=== PATIENT | male | born 1940 | race Two or more races ===

== ENCOUNTER 2018-11-24 22:39 | Inpatient (IN) | payer MEDICARE, MEDICAID ==
[~2018-11-24] VITALS: Ht 175.3 cm; Wt 70.4 kg
[2018-11-25 00:40] LABS: Urine Bacteria FEW /hpf (None Seen); Urine Blood TRACE /uL (Negative); Urine Specific Gravity 1.012 (1.001-1.035); Urine WBC 2 /hpf (0 - 3)
[2018-11-25 03:10] LABS: Basophils # (auto) 0 uL; Basophils % (auto) 0.3 % (0.0-2.0); Eosinophils # (auto) 0 uL; Eosinophils % (auto) 0.3 % (0.0-7.0); Hemoglobin 13.5 g/dL (13.5-17.5); Lymphocytes # (auto) 1.7 uL; Lymphocytes % (auto) 11.2 % (10.0-50.0); Mean Corpuscular Hemoglobin 30.7 pg (28.0-32.0); Mean Corpuscular Hgb Conc. 33.8 g/dL (32.0-36.0); Mean Corpuscular Volume 90.8 fL (80.0-100.0); Monocytes # (auto) 0.7 uL; Monocytes % (auto) 4.7 % (0.0-12.0); Neutrophils % (auto) 83.5 % (37.0-80.0); Platelet Count (auto) 268 10^3/uL (140-450); White Blood Cell 15.5 10^3/uL (4.4-10.8)
[2018-11-25 03:26] LABS: BUN/Creatinine Ratio 21.2; Calcium 8.9 mg/dL (8.5-10.1); Potassium 3.6 mmol/L (3.5-5.1)
[2018-11-25 03:29] LABS: Bilirubin, Total 1.1 mg/dL (0.2-1.0); Total Protein 6.6 g/dL (6.4-8.2)
[2018-11-25 03:35] LABS: INR 0.93 (0.9-1.15)
[2018-11-25] MEDS ORDERED: ONDANSETRON HCL 4 MG/2 ML VIAL IV PRN (07:15)
[2018-11-25] MEDS ORDERED: diphenhdrAMINE HCL 50 MG/1 ML VL IV PRN (07:15)
[2018-11-25] MEDS ORDERED: DEXTROSE (50%) 50ML SYRG IV PRN (07:15)
[2018-11-25 08:14] LABS: Urine Bacteria NONE SEEN /hpf (None Seen); Urine Blood TRACE /uL (Negative); Urine Specific Gravity 1.011 (1.001-1.035); Urine WBC 1 /hpf (0 - 3)
[2018-11-25] MEDS: cefTRIAXone 1GM/50ML D5W 50 ML IV SCH (08:40)
[2018-11-25] MEDS: metroNIDAZOLE 500MG/100ML 100 ML IV SCH ×2 (09:43→15:43)
[2018-11-25] MEDS: LISINOPRIL 10 MG TAB PO SCH (10:00)
[2018-11-25] MEDS: ACCU-CHEK COMFORT CURVE STRIP VI SCH ×3 (11:48→23:03)
[2018-11-25] MEDS: InsuLIN REG 1unit/0.01ml Soln (100units/ml) SC SCH ×3 (11:58→23:11)
[2018-11-25] MEDS: GENTAMICIN OPTH sol 0.3% 5ml EACHEYE SCH ×4 (12:47→22:00)
[2018-11-25] MEDS: TAMSULOSIN HYDROCHLORIDE 0.4 MG CAP PO SCH (20:03)
[2018-11-25] MEDS: SOD CHL 0.45% WITH 20MEQ KCL 1,000 ML IV SCH (20:12)
[2018-11-26] MEDS: GENTAMICIN OPTH sol 0.3% 5ml EACHEYE SCH ×6 (02:00→21:31)
[2018-11-26] MEDS: CLINDAMYCIN 300MG IV 50 ML IV SCH ×4 (05:17→21:31)
[2018-11-26] MEDS: metroNIDAZOLE 500MG/100ML 100 ML IV SCH ×4 (06:05→22:52)
[2018-11-26] MEDS: ACCU-CHEK COMFORT CURVE STRIP VI SCH ×4 (06:51→21:31)
[2018-11-26] MEDS: InsuLIN REG 1unit/0.01ml Soln (100units/ml) SC SCH ×4 (06:58→21:31)
[2018-11-26] MEDS: SOD CHL 0.45% WITH 20MEQ KCL 1,000 ML IV SCH ×2 (07:24→17:56)
--- NOTE | 2018-11-26 08:30 | NUR ---
Telemetry admit from ER KATERYNASRIDHAR admitted to Telemetry unit, no SBAR received. Patient introduced primary RN, unit, room, bed, and unit policies regarding patient care and visiting hours. Patient now on continuous telemetry monitoring, tele box # 43 and telemetry reading on arrival to unit is SR 87. Patient weighed by bedscale and encouraged to call if he need something. Patient is alert and oriented to self. Does not know where he is and unable to say why he came to the hospital. No family member with patient at this time to assist with admission. Sitter at bedside.
[2018-11-26 09:00] VITALS: BP 164/71
[2018-11-26] MEDS: LISINOPRIL 10 MG TAB PO SCH (09:12)
[2018-11-26] MEDS: cefTRIAXone 1GM/50ML D5W 50 ML IV SCH (09:12)
--- NOTE | 2018-11-26 09:30 | NUR ---
Sister at bedside.
[2018-11-26] MEDS ORDERED: METF-370 PO (09:55)
[2018-11-26] MEDS ORDERED: AMLO10TA12 PO (09:55)
[2018-11-26] MEDS ORDERED: DONE10TA40 PO (09:55)
[2018-11-26 10:20] VITALS: BP 164/71
--- NOTE | 2018-11-26 11:50 | NUR ---
MRCP Technicians at bedside to take patient for procedure. However, the patient is very drowsy and is not responding to commands at this time. Patient is not laying flat.
[2018-11-26] MEDS ORDERED: LORazepam 2MG/ML-1ML VIAL IV ONE (14:45)
--- NOTE | 2018-11-26 15:15 | NUR ---
MRCP Procedure was explained to patient in Danish and he consented to have procedure done. Patient left unit with technicians for MRCP.
--- NOTE | 2018-11-26 15:46 | NUR ---
MRCP Patient returned to unit after having MRCP done.
[2018-11-26] MEDS: TAMSULOSIN HYDROCHLORIDE 0.4 MG CAP PO SCH (17:54)
--- NOTE | 2018-11-26 19:10 | NUR ---
Opening Shift Note Bed side report with day BIRGIT Escalante, Assumed care of patient, awake, sitter at bedside for safety. No S/S of distress/SOB or pain. Instructed on POC and to call for assist PRN, will continue to monitor for changes Q1hr and PRN. Informed patient the need to alternate positions, the need to ask for help. Bed locked and in lowest position, call light within reach.
--- NOTE | 2018-11-26 21:55 | NUR ---
FAMILY PHONE CALL Trace wanted update on pt, password was provided, gave latest updates, will continue to monitor pt.
[2018-11-26 22:00] VITALS: BP 159/71
[2018-11-27] MEDS: SOD CHL 0.45% WITH 20MEQ KCL 1,000 ML IV SCH ×3 (00:15→20:15)
--- NOTE | 2018-11-27 00:57 | NUR ---
PT ROUNDS PT resting no s/sx;s of distress or sob, sitter at bedside for safety.
[2018-11-27] MEDS: GENTAMICIN OPTH sol 0.3% 5ml EACHEYE SCH ×6 (02:00→21:23)
--- NOTE | 2018-11-27 02:22 | NUR ---
PT ROUNDS Pt refusing eye drops does not want to be disturb, explain purpose of med. still refused med
--- NOTE | 2018-11-27 02:48 | NUR ---
PT REFUSING TELE MONITOR Reinforced needed to explain pt purpose of tele monitor, informed him why it was indicated, pt was hesitant but accepted will continue to monitor pt.
--- NOTE | 2018-11-27 03:38 | NUR ---
PT ROUNDS PT removed tele stickers reeducated pt purpose of them, pt hesitant to wear them, pt cleaned up. Instructed pot how to use urinal , if pt unable to use notified pt that we can help him so he wont get wet everytime, Pt hesitant and states the urinal doesn't work. Educated pt how to use and how to avoid spills. Reinforcement needed. sitter at bedside for safety will continue to monitor pt.
[2018-11-27 04:00] VITALS: BP 146/76
[2018-11-27] MEDS: CLINDAMYCIN 300MG IV 50 ML IV SCH ×3 (05:57→21:23)
[2018-11-27] MEDS: ACCU-CHEK COMFORT CURVE STRIP VI SCH ×4 (05:57→21:23)
[2018-11-27] MEDS: InsuLIN REG 1unit/0.01ml Soln (100units/ml) SC SCH ×4 (06:10→21:23)
[2018-11-27 06:11] LABS: Basophils # (auto) 0.1 uL; Basophils % (auto) 0.4 % (0.0-2.0); Eosinophils # (auto) 0 uL; Eosinophils % (auto) 0.2 % (0.0-7.0); Hematocrit 36.6 % (41.0-53.0); Hemoglobin 12.6 g/dL (13.5-17.5); Lymphocytes # (auto) 1.7 uL; Lymphocytes % (auto) 11.7 % (10.0-50.0); Mean Corpuscular Hemoglobin 31.6 pg (28.0-32.0); Mean Corpuscular Hgb Conc. 34.4 g/dL (32.0-36.0); Mean Corpuscular Volume 91.9 fL (80.0-100.0); Monocytes # (auto) 1.1 uL; Monocytes % (auto) 7.8 % (0.0-12.0); Neutrophils # (auto) 11.8 uL; Neutrophils % (auto) 79.9 % (37.0-80.0); Platelet Count (auto) 237 10^3/uL (140-450); Red Blood Cells 3.98 10^6/uL (4.5-5.90); White Blood Cell 14.7 10^3/uL (4.4-10.8)
[2018-11-27 06:40] LABS: BUN/Creatinine Ratio 15.3; Calcium 8.1 mg/dL (8.5-10.1); Potassium 3.8 mmol/L (3.5-5.1)
--- NOTE | 2018-11-27 07:29 | NUR ---
CLOSING NOTE Report endorsed to day RN pt resting no s/sx's of distress or sob
--- NOTE | 2018-11-27 07:40 | NUR ---
Opening Shift Note Assumed care of patient, awake and alert to self and place. No S/S of distress/SOB or pain. Instructed on POC and to call for assist PRN, will continue to monitor for changes Q1hr and PRN.
[2018-11-27] MEDS: metroNIDAZOLE 500MG/100ML 100 ML IV SCH ×3 (08:26→23:37)
[2018-11-27 08:49] VITALS: BP 148/73
[2018-11-27] MEDS: cefTRIAXone 1GM/50ML D5W 50 ML IV SCH (09:05)
[2018-11-27] MEDS: ACETAMINOPHEN 500 MG TAB PO PRN (09:05)
[2018-11-27] MEDS: LISINOPRIL 10 MG TAB PO SCH (09:06)
--- NOTE | 2018-11-27 12:20 | NUR ---
ERCP Consents Consent form for procedure signed by nephew. Sister and nephew was at bedside while MD explained the procedure.
[2018-11-27 13:00] VITALS: BP 141/70
--- NOTE | 2018-11-27 14:23 | NUR ---
NUTRITION ASSESSMENT NOTES Please refer to link notes of nutrition screen form filed under the intervention section of the plan of care for further details. Est. Needs: 1700 kcal to 2100 kcal (20-25 kcal/kgBW), 68 gms to 84 gms pro (0.8-1.0 gms/kgBW). Will continue to monitor pertinent labs and reassess nutrient need prn Thank you. Addendum: 11/27/18 at [address] Amended: Links added.
[2018-11-27] MEDS ORDERED: fentaNYL CITRATE 5 ML ONE (14:59)
[2018-11-27] MEDS ORDERED: ONDANSETRON HCL 4 MG/2 ML VIAL ONE (15:00)
[2018-11-27] MEDS ORDERED: MIDAZOLAM HCL 1MG/1ML-2 ML VIAL ONE (15:00)
[2018-11-27] MEDS ORDERED: IOHEXOL 300 MG/ML 100ML BOTTLE IJ ONE (15:37)
--- NOTE | 2018-11-27 15:45 | NUR ---
ERCP Patient taken down to PACU to have ERCP done.
--- NOTE | 2018-11-27 18:55 | NUR ---
Patient returned to unit awake but drowsy. Family members at bedside.
--- NOTE | 2018-11-27 19:10 | NUR ---
Opening Shift Note Assumed care of patient, awake, nephew at bedside. No S/S of distress/SOB or pain. Vitals obtained, Day RN at bedside. Instructed on POC and to call for assist PRN, will continue to monitor for changes Q1hr and PRN. Placed pt on SCD's. Informed pt purpose of SCD's. IV intact and patent. Bed locked and in lowest position, call light within reach.
[2018-11-27] MEDS: TAMSULOSIN HYDROCHLORIDE 0.4 MG CAP PO SCH (19:16)
[2018-11-27 22:00] VITALS: BP 144/70
[2018-11-28] MEDS: GENTAMICIN OPTH sol 0.3% 5ml EACHEYE SCH ×6 (01:30→22:06)
[2018-11-28 05:00] VITALS: BP 157/80
[2018-11-28 05:45] LABS: Basophils # (auto) 0.1 uL; Basophils % (auto) 0.5 % (0.0-2.0); Eosinophils # (auto) 0 uL; Eosinophils % (auto) 0.2 % (0.0-7.0); Hematocrit 36.8 % (41.0-53.0); Hemoglobin 12.3 g/dL (13.5-17.5); Lymphocytes # (auto) 0.8 uL; Lymphocytes % (auto) 5.7 % (10.0-50.0); Mean Corpuscular Hemoglobin 30.8 pg (28.0-32.0); Mean Corpuscular Hgb Conc. 33.5 g/dL (32.0-36.0); Mean Corpuscular Volume 92.2 fL (80.0-100.0); Monocytes # (auto) 0.8 uL; Monocytes % (auto) 5.8 % (0.0-12.0); Neutrophils # (auto) 11.8 uL; Neutrophils % (auto) 87.8 % (37.0-80.0); Platelet Count (auto) 265 10^3/uL (140-450); Red Blood Cells 3.99 10^6/uL (4.5-5.90); Red Cell Distribution Width 13.3 % (11.8-14.3); White Blood Cell 13.4 10^3/uL (4.4-10.8)
[2018-11-28] MEDS: ACCU-CHEK COMFORT CURVE STRIP VI SCH ×4 (06:06→22:06)
[2018-11-28] MEDS: SOD CHL 0.45% WITH 20MEQ KCL 1,000 ML IV SCH ×2 (06:06→17:20)
[2018-11-28 06:17] LABS: Potassium 3.8 mmol/L (3.5-5.1)
[2018-11-28] MEDS: CLINDAMYCIN 300MG IV 50 ML IV SCH ×3 (06:18→21:59)
[2018-11-28] MEDS: InsuLIN REG 1unit/0.01ml Soln (100units/ml) SC SCH ×4 (06:19→22:00)
[2018-11-28 06:23] LABS: BUN/Creatinine Ratio 14.8
--- NOTE | 2018-11-28 07:16 | NUR ---
UNSUCCESSFUL ATTEMPTS FOR IV Unsuccessful attempts for IV insertion, unsuccessful, pt requested to take a break will endorse to day RN
--- NOTE | 2018-11-28 07:17 | NUR ---
CLOSING NOTE Report endorsed to day RN, pt awake, inform pt unable to get an IV. pt did not want to be poked again. no s/sx's of distress or sob noted
[2018-11-28 08:00] VITALS: BP 149/69
[2018-11-28] MEDS: metroNIDAZOLE 500MG/100ML 100 ML IV SCH ×2 (08:16→15:39)
--- NOTE | 2018-11-28 08:20 | NUR ---
IV insertion IV access obtained, via clean sterile technique by inserting 20 gauge catheter at right upper after 1 attempt(s). IV secured properly. No trauma to site. Patient tolerated well.
[2018-11-28] MEDS: LISINOPRIL 10 MG TAB PO SCH (09:23)
[2018-11-28] MEDS: cefTRIAXone 1GM/50ML D5W 50 ML IV SCH (09:23)
--- NOTE | 2018-11-28 12:56 | NUR ---
DR. TURNER CALLED, HE SAID TO ASK DR. CHRIS REGARDING PLAN OR SCHEDULE FOR SURGERY, HE ORDERED CONSISTENT CARB DIET. PER DR. TURNER IF DR. CHRIS WILL NOT DO SURGERY PT CAN GO HOME AND WILL FOLLOW UP WITH HIM FOR REMOVAL OF STENT.
[2018-11-28 13:00] VITALS: BP 138/73
--- NOTE | 2018-11-28 13:04 | NUR ---
SPOKE WITH DR. CHRIS, HE SAID HE WILL COME SEE THE PT AND WILL DECIDE WHEN HE WILL SCHEDULE THE PT FOR SURGERY.
--- NOTE | 2018-11-28 14:17 | NUR ---
PT SEEN BY DR. RAI PT MADE AWARE HE NEEDS SURGICAL REMOVAL OF GALLBLADDER BUT THE SURGEON WILL COME SEE HIM AND WILL DECIDE FOR THE SCHEDULE OF SURGERY. PER DR. RAI IF DR. CHRIS IS NOT GOING TO DO THE SURGERY ON THIS ADMISSION HE SAID TO PUT DISCHARGE ORDER AND FOLLOW UP WITH DR. TURNER IN 2 WEEKS. Addendum: 11/28/18 at 1425 by Angelique Canada RN FOLLOW UP WITH DR. Heather TURNER IN 2-3 MONTHS.
[2018-11-28 14:48] LABS: Amylase 688 U/L (25-115); Lipase 3757 U/L (73-393)
--- NOTE | 2018-11-28 15:23 | NUR ---
PT IS RESTLESS, PULLED HIS TELE MONITOR, REMOVED HIS GOWN, TRYING TO GET OUT OF BED. I TRIED TO RE DIRECT PT AND RE-ORIENT HIM BUT PT BECOMES MORE RESTLESS, PT GIVEN ANXIETY MEDICATION ORDERED.
[2018-11-28] MEDS: LORazepam 2MG/ML-1ML VIAL IV PRN ×2 (15:29→22:13)
[2018-11-28 17:00] VITALS: BP 149/74
[2018-11-28] MEDS: TAMSULOSIN HYDROCHLORIDE 0.4 MG CAP PO SCH (18:29)
--- NOTE | 2018-11-28 19:40 | NUR ---
Opening Shift Note Assumed care of patient, awake and alert oriented x2. No S/S of distress/SOB or pain noted. Sitter is at the bedside and patient is resting on the bed. Bed is in lowest locked position with bed rails up x2 and call light is within reach of the patient. Instructed on POC and to call for assist PRN.
[2018-11-28 22:00] VITALS: BP 155/72
--- NOTE | 2018-11-28 23:15 | NUR ---
Patient agitated and removed IV: Patient was agitated and became combative and removed IV according to the sitter and tried to get out of bed. Talked to the patient and attempted to reorient the patient to place, time, person and situation. Patient currently laying in bed with no S/S of distress SOB noted. Will start new IV access.
--- NOTE | 2018-11-29 00:15 | NUR ---
IV insertion IV access obtained, via clean sterile technique by inserting 20 gauge catheter at left forearm. IV secured properly. No trauma to site. Patient tolerated well.
[2018-11-29] MEDS: metroNIDAZOLE 500MG/100ML 100 ML IV SCH ×4 (00:36→23:42)
[2018-11-29] MEDS: GENTAMICIN OPTH sol 0.3% 5ml EACHEYE SCH ×6 (01:33→22:00)
[2018-11-29] MEDS: SOD CHL 0.45% WITH 20MEQ KCL 1,000 ML IV SCH ×3 (02:15→22:34)
[2018-11-29 05:00] VITALS: BP 146/91
[2018-11-29] MEDS: CLINDAMYCIN 300MG IV 50 ML IV SCH ×3 (05:30→21:06)
[2018-11-29] MEDS: ACETAMINOPHEN 500 MG TAB PO PRN (05:49)
[2018-11-29] MEDS: InsuLIN REG 1unit/0.01ml Soln (100units/ml) SC SCH ×4 (06:35→22:00)
[2018-11-29] MEDS: ACCU-CHEK COMFORT CURVE STRIP VI SCH ×4 (06:35→22:00)
[2018-11-29 07:04] LABS: Basophils # (auto) 0 uL; Basophils % (auto) 0.3 % (0.0-2.0); Eosinophils # (auto) 0.2 uL; Eosinophils % (auto) 1.6 % (0.0-7.0); Hematocrit 36.8 % (41.0-53.0); Lymphocytes # (auto) 1.2 uL; Lymphocytes % (auto) 10.1 % (10.0-50.0); Mean Corpuscular Hemoglobin 30.8 pg (28.0-32.0); Mean Corpuscular Hgb Conc. 32.6 g/dL (32.0-36.0); Mean Corpuscular Volume 94.5 fL (80.0-100.0); Monocytes % (auto) 8.2 % (0.0-12.0); Neutrophils # (auto) 9.3 uL; Neutrophils % (auto) 79.8 % (37.0-80.0); Nucleated Red Blood Cells % 0.1 %; Platelet Count (auto) 253 10^3/uL (140-450); Red Cell Distribution Width 13.2 % (11.8-14.3); White Blood Cell 11.7 10^3/uL (4.4-10.8)
[2018-11-29 07:29] LABS: Calcium 7.9 mg/dL (8.5-10.1); Potassium 4.1 mmol/L (3.5-5.1)
[2018-11-29 07:32] LABS: BUN/Creatinine Ratio 11.7
--- NOTE | 2018-11-29 07:32 | NUR ---
Opening Shift Note Assumed care of patient, asleep on bed resting comfortably. No S/S of distress/SOB or pain. call light within reach, 2 side rails up and bed in lowest position, sitter at bedside. will continue to monitor for changes Q1hr and PRN.
[2018-11-29 08:03] VITALS: BP 128/54
[2018-11-29] MEDS: cefTRIAXone 1GM/50ML D5W 50 ML IV SCH (09:17)
--- NOTE | 2018-11-29 09:50 | NUR ---
PT STILL ASLEEP AFTER HE WAS GIVEN ATIVAN ON [employer] HELPER FOR EPISODE OF ANXIETY, AND RESTLESSNESS. WILL GIVE SCHEDULED ORAL MEDICATION AND EYEDROPS ONCE AWAKE.
[2018-11-29] MEDS: LISINOPRIL 10 MG TAB PO SCH ×2 (10:00→14:52)
--- NOTE | 2018-11-29 10:15 | NUR ---
PT WAS GIVEN ATIVAN. PT STILL VERY SLEEPY. ATTEMPT P.T. LATER.
[2018-11-29 12:41] VITALS: BP 159/76
--- NOTE | 2018-11-29 14:15 | NUR ---
PT SEEN BY DR. CHRIS HE SAID HE CANNOT DO SURGERY AT THIS TIME DUE TO ELEVATED AMYLASE AND LIPASE. HE ORDERED NPO AND CBC, CMP ,LIPASE AND AMYLASE TOMORROW AND MONDAY.
[2018-11-29 16:50] VITALS: BP 159/82
[2018-11-29] MEDS: TAMSULOSIN HYDROCHLORIDE 0.4 MG CAP PO SCH (17:45)
--- NOTE | 2018-11-29 18:30 | NUR ---
PT SEEN BY DR. Filippo HEIN WITH WRITTEN ORDER IN THE CHART FOR CT GUIDED THORACENTESIS.
[2018-11-29 22:00] VITALS: BP 163/82
[2018-11-30] MEDS: GENTAMICIN OPTH sol 0.3% 5ml EACHEYE SCH ×6 (02:00→22:36)
[2018-11-30 05:28] VITALS: BP 154/85
[2018-11-30] MEDS: CLINDAMYCIN 300MG IV 50 ML IV SCH ×3 (05:32→22:34)
[2018-11-30] MEDS: InsuLIN REG 1unit/0.01ml Soln (100units/ml) SC SCH ×4 (06:24→22:41)
[2018-11-30 06:28] LABS: Basophils # (auto) 0 uL; Basophils % (auto) 0.4 % (0.0-2.0); Eosinophils # (auto) 0.1 uL; Hematocrit 36.2 % (41.0-53.0); Hemoglobin 12.3 g/dL (13.5-17.5); Lymphocytes # (auto) 1.4 uL; Lymphocytes % (auto) 12.6 % (10.0-50.0); Mean Corpuscular Hemoglobin 31.3 pg (28.0-32.0); Mean Corpuscular Volume 92.1 fL (80.0-100.0); Monocytes # (auto) 0.9 uL; Monocytes % (auto) 8.6 % (0.0-12.0); Neutrophils # (auto) 8.5 uL; Neutrophils % (auto) 77.4 % (37.0-80.0); Platelet Count (auto) 278 10^3/uL (140-450); Red Blood Cells 3.93 10^6/uL (4.5-5.90); Red Cell Distribution Width 12.5 % (11.8-14.3); White Blood Cell 10.9 10^3/uL (4.4-10.8)
[2018-11-30] MEDS: ACCU-CHEK COMFORT CURVE STRIP VI SCH ×4 (06:30→22:34)
[2018-11-30 06:56] LABS: BUN/Creatinine Ratio 13.5; Bilirubin, Total 0.5 mg/dL (0.2-1.0); Calcium 7.7 mg/dL (8.5-10.1)
[2018-11-30 06:59] LABS: Total Protein 5.5 g/dL (6.4-8.2)
[2018-11-30] MEDS: metroNIDAZOLE 500MG/100ML 100 ML IV SCH ×2 (07:12→14:42)
[2018-11-30 08:01] VITALS: BP 186/75
[2018-11-30] MEDS: SOD CHL 0.45% WITH 20MEQ KCL 1,000 ML IV SCH ×2 (08:15→18:15)
--- NOTE | 2018-11-30 08:47 | NUR ---
Patient refused thoracentesis at this time, spoke to Gali (patient's sister) will come to talk to patient today.
[2018-11-30] MEDS: LISINOPRIL 10 MG TAB PO SCH (09:58)
[2018-11-30] MEDS: cefTRIAXone 1GM/50ML D5W 50 ML IV SCH (09:59)
--- NOTE | 2018-11-30 10:15 | NUR ---
Patient agreed to do thoracentesis.
--- NOTE | 2018-11-30 10:20 | NUR ---
Dr. Salcedo at bedside discussed with family and patient.
--- NOTE | 2018-11-30 10:21 | NUR ---
Per Dr. Salcedo will talk to Dr. Padron regarding cholecystectomy.
--- NOTE | 2018-11-30 11:00 | NUR ---
THORACENTESIS COMPLETED BY DR LAMB IN ULTRASOUND. PT TOLERATED WELL. VSS. 153/[id number]%. 600 ML OF FLUID REMOVED AND SENT TO LAB/PATHOLOGY
[2018-11-30 11:55] VITALS: BP 153/82
--- NOTE | 2018-11-30 12:48 | NUR ---
Nutrition Follow-up Notes Wt.: 69.7 kg Pt was sleeping with no family by bedside. per pt records pt with CBD stone s/p ERCP and to have lap warren. per records pt to have thoracentesis. pt with no distress noted per nursing. pt is currently on clear liq diet with no PO recorded yet as pt was NPO this am Est. Needs: 1700 kcal to 2100 kcal (20-25 kcal/kgBW), 68 gms to 84 gms pro (0.8-1.0 gms/kgBW). Will continue to monitor pertinent labs and reassess nutrient need prn Labs: CA 7.7 L, GLU 157 H, ALB 2.0 L. Skin: Riccardo scale 17, mod risk, swelling in forearm per RN doc GI: Pt had 7 BM today per diving judge. PES: Altered nutrition related lab values r/t current/chronic medical condition aeb hyperglycemia, hyperchloremia,elev. BUN, AST, HbA1c, low LFTs, hypocalcemia Will continue to monitor PO intake, skin status, pertinent labs and weight trend. F/u in 2-3 days. Rec.: 1.) Advance oral diet (Soft Consistent Standard Carb: 60 gms/meal, Cardiac: 2 gms Na, Low Chol, Low Fat diet) when medically appropriate. 3.) Consider close supervision and feeding assistance prn during meals 4.) Refer to CDE/RD for further nutrition education and weight monitoring upon discharged. 5.) Continue current plan of care.
--- NOTE | 2018-11-30 15:39 | NUR ---
assessment Patient is a 78 year old male who is confused. Per patients sister Queta [phone] prior to admission patient lived home with family for the past month. Per Queta patient was here living out of area and went to live with his brother out of state then ended up in [place]. Queta informed me patient was not eating and looked very frail. Queta informed me patient has a fww for home use. Queta is requesting SNF at [facility] on discharge for rehab prior to patient returning home. Patient has no advanced directive or POA. Queta verbalized understanding and agreed to discharge plan to SNF. Addendum: 11/30/18 at 1543 by Malena CALLAHAN Amended: Links added.
[2018-11-30 16:00] VITALS: BP 161/86
[2018-11-30] MEDS: TAMSULOSIN HYDROCHLORIDE 0.4 MG CAP PO SCH (17:31)
--- NOTE | 2018-11-30 18:45 | NUR ---
IV insertion IV access obtained, via clean sterile technique by inserting 20 gauge catheter at after attempt(s). IV secured properly. No trauma to site. Patient tolerated well.
[2018-11-30 22:00] VITALS: BP 163/79
[2018-12-01] MEDS: metroNIDAZOLE 500MG/100ML 100 ML IV SCH ×4 (01:51→23:20)
[2018-12-01] MEDS: GENTAMICIN OPTH sol 0.3% 5ml EACHEYE SCH ×6 (02:13→22:30)
[2018-12-01] MEDS: SOD CHL 0.45% WITH 20MEQ KCL 1,000 ML IV SCH ×2 (04:34→14:15)
[2018-12-01 05:33] VITALS: BP 149/82
[2018-12-01] MEDS: CLINDAMYCIN 300MG IV 50 ML IV SCH ×3 (06:09→22:29)
[2018-12-01 06:35] LABS: Basophils # (auto) 0 uL; Basophils % (auto) 0.4 % (0.0-2.0); Eosinophils # (auto) 0.2 uL; Eosinophils % (auto) 1.6 % (0.0-7.0); Hemoglobin 11.4 g/dL (13.5-17.5); Lymphocytes # (auto) 1.8 uL; Lymphocytes % (auto) 17.7 % (10.0-50.0); Mean Corpuscular Hemoglobin 30.8 pg (28.0-32.0); Mean Corpuscular Hgb Conc. 33.5 g/dL (32.0-36.0); Mean Corpuscular Volume 91.8 fL (80.0-100.0); Monocytes # (auto) 0.9 uL; Monocytes % (auto) 8.9 % (0.0-12.0); Neutrophils # (auto) 7.3 uL; Neutrophils % (auto) 71.4 % (37.0-80.0); Platelet Count (auto) 327 10^3/uL (140-450); Red Cell Distribution Width 12.8 % (11.8-14.3); White Blood Cell 10.2 10^3/uL (4.4-10.8)
[2018-12-01 06:46] LABS: Calcium 8.2 mg/dL (8.5-10.1); Potassium 3.8 mmol/L (3.5-5.1)
[2018-12-01 06:51] LABS: BUN/Creatinine Ratio 13.7; Bilirubin, Total 0.4 mg/dL (0.2-1.0); Total Protein 5.3 g/dL (6.4-8.2)
[2018-12-01] MEDS: InsuLIN REG 1unit/0.01ml Soln (100units/ml) SC SCH ×4 (07:10→22:43)
[2018-12-01] MEDS: ACCU-CHEK COMFORT CURVE STRIP VI SCH ×4 (07:10→22:30)
--- NOTE | 2018-12-01 08:00 | NUR ---
Opening Shift Note Assumed care of patient, awake and alert, oriented x 4 and verbally responsive. Respiratory even and unlabored. No S/S of distress/SOB or pain. Skin is warm and dry to touch, no s/s of hyperglycemia or hypoglycemia noted. Instructed on POC and to call for assist PRN, will continue to monitor for changes Q1hr and PRN.
[2018-12-01 08:33] VITALS: BP 149/72
[2018-12-01] MEDS: LISINOPRIL 10 MG TAB PO SCH (09:48)
[2018-12-01] MEDS: cefTRIAXone 1GM/50ML D5W 50 ML IV SCH (09:48)
--- NOTE | 2018-12-01 10:22 | NUR ---
Alpa (LE) paged regarding SS consult for HH, PT , awaiting to call back.
--- NOTE | 2018-12-01 10:58 | NUR ---
Received a call from AROLDO, instructed to fax H and P. face sheet and order to [facility] # [phone].
--- NOTE | 2018-12-01 11:23 | NUR ---
Alpa paged regarding family wants patient to transfer to SNF.
--- NOTE | 2018-12-01 11:50 | NUR ---
Received a call from Alpa , instructed to fax order to [facility] # [phone]
[2018-12-01 13:00] VITALS: BP 129/67
--- NOTE | 2018-12-01 13:55 | NUR ---
Per Dr. Padron will perform lap cholecystectomy on Monday, family at bedside made aware.
--- NOTE | 2018-12-01 13:55 | NUR ---
Dr. Padron at bedside discussed with patient.
--- NOTE | 2018-12-01 13:58 | NUR ---
water control supervisor (Ashley) notified regarding patient will have a surgery on Monday.
[2018-12-01 17:26] VITALS: BP 164/82
[2018-12-01 18:30] VITALS: BP 132/78
[2018-12-01] MEDS: TAMSULOSIN HYDROCHLORIDE 0.4 MG CAP PO SCH (18:36)
[2018-12-01] MEDS: cloNIDine HCL 0.1 MG TAB PO PRN (19:02)
[2018-12-02] MEDS: SOD CHL 0.45% WITH 20MEQ KCL 1,000 ML IV SCH ×3 (00:11→22:10)
[2018-12-02] MEDS: GENTAMICIN OPTH sol 0.3% 5ml EACHEYE SCH ×6 (01:55→22:09)
[2018-12-02 05:00] VITALS: BP 160/78
[2018-12-02] MEDS: CLINDAMYCIN 300MG IV 50 ML IV SCH ×3 (05:46→22:09)
--- NOTE | 2018-12-02 06:45 | NUR ---
Patient was getting anxious and confused. Tried to pulled out IV and wanted to go home. Will continue care and provide information to coming Day Shift RN.
[2018-12-02] MEDS: ACCU-CHEK COMFORT CURVE STRIP VI SCH ×4 (06:47→22:10)
[2018-12-02] MEDS: metroNIDAZOLE 500MG/100ML 100 ML IV SCH ×3 (06:48→23:31)
[2018-12-02] MEDS: InsuLIN REG 1unit/0.01ml Soln (100units/ml) SC SCH ×4 (06:48→22:27)
[2018-12-02] MEDS: cloNIDine HCL 0.1 MG TAB PO PRN (07:02)
[2018-12-02] MEDS: LORazepam 2MG/ML-1ML VIAL IV PRN (07:02)
[2018-12-02 09:00] VITALS: BP 151/76
[2018-12-02] MEDS: LISINOPRIL 10 MG TAB PO SCH (09:29)
[2018-12-02] MEDS: cefTRIAXone 1GM/50ML D5W 50 ML IV SCH (09:29)
[2018-12-02 13:05] VITALS: BP 149/74
--- NOTE | 2018-12-02 13:25 | NUR ---
PT Hold PT as per BIRGIT Martinez, Patient was combative this morning. Addendum: 12/02/18 at 1326 by WILL WILLS PTT Amended: Links added.
--- NOTE | 2018-12-02 15:08 | NUR ---
Informed patient again that he will have a surgery tomorrow morning and need to be NPO AMN, patient verbalized understanding. Family notified.
[2018-12-02 17:05] VITALS: BP 153/69
[2018-12-02] MEDS: TAMSULOSIN HYDROCHLORIDE 0.4 MG CAP PO SCH (17:29)
[2018-12-02 22:00] VITALS: BP 157/70
--- NOTE | 2018-12-02 22:15 | NUR ---
Patient reported sudden tenderness and pain at left heel. (Patient wants to know what cause the pain and wants to obtain more information.) Repositioned patient and will provide PRN pain medication. Will inform to day shift RN.
[2018-12-02] MEDS: ACETAMINOPHEN 500 MG TAB PO PRN (22:28)
--- NOTE | 2018-12-03 00:30 | NUR ---
Starting NPO for scheduled procedure (Keith Holland at bedside translated information )
[2018-12-03] MEDS: GENTAMICIN OPTH sol 0.3% 5ml EACHEYE SCH ×6 (02:00→21:04)
--- NOTE | 2018-12-03 04:00 | NUR ---
IV removal_ due to paint's request IV DC'd with clean sterile technique, catheter fully intact. Pressure dressing applied to site. Patient tolerated well.
--- NOTE | 2018-12-03 04:40 | NUR ---
IV insertion IV access obtained, via clean sterile technique by inserting 22 gauge catheter at Left Forearm after 2 attempts. IV secured properly. No trauma to site. Patient tolerated well.
[2018-12-03 05:00] VITALS: BP 148/73
[2018-12-03] MEDS: CLINDAMYCIN 300MG IV 50 ML IV SCH ×3 (05:35→21:45)
[2018-12-03 05:57] LABS: INR 1.09 (0.9-1.15); Partial Thromboplastin Time 33.8 sec (23.78-33.04); Prothrombin Time 11.6 sec (9.27-12.13)
[2018-12-03] MEDS: SOD CHL 0.45% WITH 20MEQ KCL 1,000 ML IV SCH ×2 (06:50→16:15)
[2018-12-03] MEDS: ACCU-CHEK COMFORT CURVE STRIP VI SCH ×4 (06:51→21:49)
[2018-12-03] MEDS: InsuLIN REG 1unit/0.01ml Soln (100units/ml) SC SCH ×4 (06:51→21:45)
[2018-12-03] MEDS: metroNIDAZOLE 500MG/100ML 100 ML IV SCH ×3 (06:52→23:34)
--- NOTE | 2018-12-03 07:30 | NUR ---
Opening Shift Note Assumed care of patient, awake, alert, and oriented x4. No S/S of distress/SOB or pain. IV in left forearm 22 gauge asymptomatic, intact, patent, and infusing 0.45 normal saline with 20 MEQ potassium at 100 mL/hour. Bed locked and in lowest position and call light is within reach. Instructed on POC and to call for assist PRN, and patient verbalized understanding. Will continue to monitor for changes Q1hr and PRN.
--- NOTE | 2018-12-03 08:31 | NUR ---
call center dispatcher 12/01/18-I received a page from nurse Martinez letting me know that there was a social service consult for SNF for this patient, possibly to be discharged 12/02-I had her fax the SNF packet to [facility]. Originally the plan was for patient to go home with home health and I had nurse Martinez fax the home health order to [facility].
[2018-12-03] MEDS ORDERED: MORPHINE SULFATE INJECTION 1 ML ONE (08:40)
[2018-12-03] MEDS ORDERED: MIDAZOLAM HCL 1MG/1ML-2 ML VIAL ONE (08:40)
[2018-12-03] MEDS ORDERED: SODIUM CHLORIDE LOCK 20 ML ONE (08:40)
[2018-12-03] MEDS ORDERED: ONDANSETRON HCL 4 MG/2 ML VIAL ONE (08:40)
[2018-12-03] MEDS ORDERED: fentaNYL CITRATE 100 MCG/2 ML VL ONE (08:40)
[2018-12-03] MEDS ORDERED: PROPOFOL 10 MG/ML 20 ML IV ONE ×2 (08:40→10:14)
[2018-12-03] MEDS ORDERED: ROCURONIUM 10MG/ML 10ML VIAL IV ONE (08:40)
--- NOTE | 2018-12-03 08:45 | NUR ---
PATIENT TAKEN DOWN TO POST-OP VIA HOSPITAL BED. NO DISTRESS NOTED AT TIME OF DEPARTURE.
[2018-12-03 09:00] VITALS: BP 157/76
[2018-12-03] MEDS: cefTRIAXone 1GM/50ML D5W 50 ML IV SCH ×2 (09:00→21:04)
[2018-12-03] MEDS ORDERED: ceFAZolin 1GM/50ML 50 ML IV ONE (09:39)
[2018-12-03] MEDS: LISINOPRIL 10 MG TAB PO SCH (10:00)
[2018-12-03] MEDS: BUPIVACAINE 0.25% INJ 50ML VIAL ONE ×2 (10:02→10:09)
[2018-12-03] MEDS ORDERED: GLYCOPYRROLATE 0.2 MG/ML 1ML VIAL ONE (10:34)
[2018-12-03] MEDS ORDERED: KETOROLAC TROMETH 60MG/2ML VIAL IM ONE (10:34)
[2018-12-03] MEDS ORDERED: NEOSTIGMINE 1 MG/ML INJ (10mg/10ML VIAL) ONE (10:34)
--- NOTE | 2018-12-03 11:11 | NUR ---
PT Patient was not in the room during morning PT visit. Patient was in OR as per BIRGIT Srinivasan. Addendum: 12/03/18 at 1112 by WILL WILLS PTT Amended: Links added.
--- NOTE | 2018-12-03 12:30 | NUR ---
PATIENT RETURNED FROM POST-OP VIA HOSPITAL BED. NO DISTRESS NOTED AT ARRIVAL. WILL CONTINUE TO MONITOR Q1.
[2018-12-03 13:00] VITALS: BP 158/77
[2018-12-03] MEDS: ACETAMINOPHEN 500 MG TAB PO PRN (14:26)
--- NOTE | 2018-12-03 15:11 | NUR ---
PT Patient refused to be OOB during PT visit with c/o pain to his abdomen. VC's translated by sister at bedside. Addendum: 12/03/18 at 1512 by WILL WILLS PTT Amended: Links added.
--- NOTE | 2018-12-03 15:17 | NUR ---
re-assessment Per consult transfer to SNF for rehab. Per patients sister Queta she would like [facility] to be contacted. MD order has been sent to [facility]. Per Brittaney she has accepted patient to facility. Waiting on discharge now. If discharged after hours call Nora at [phone] for room number and transport. Addendum: 12/03/18 at 1518 by Malena Allen Amended: Links added.
--- NOTE | 2018-12-03 15:24 | NUR ---
re-assessment Per Brittaney at [facility] patient will be admitted to room 60b and Dr Rachel is the accepting MD. [facility] [phone] is on will call. Waiting for discharge now. Addendum: 12/03/18 at 1525 by Malena CALLAHAN Amended: Links added.
--- NOTE | 2018-12-03 15:51 | NUR ---
Nutrition Follow-up Notes Wt.: 70.2 kg Pt's on oxygen via nasal cannula, asleep, no immediate family member at bedside during rounds this morning. Pt's no signs of distress noted earlier, NPO, noted to start on Clear Liquid diet today. Est. Needs: 1700 kcal to 2100 kcal (20-25 kcal/kgBW), 68 gms to 84 gms pro (0.8-1.0 gms/kgBW). Will continue to monitor pertinent labs and reassess nutrient need prn Labs: Gluc 217 H; 12/01/18 Gluc 145 H, Ca 7.7 L, Gluc 157 H, Alb 2.0 L. Skin: Riccardo scale 18, mod risk, swelling in forearm per RN doc GI: Pt had 2 BM yesterday per bug trimmer. PES: Altered nutrition related lab values r/t current/chronic medical condition aeb hyperglycemia, hyperchloremia,elev. BUN, AST, HbA1c, low LFTs, hypocalcemia Will continue to monitor PO intake, skin status, pertinent labs and weight trend. F/u in 2 to 3 days. Rec.: 1.) Advance gradually oral diet (Soft Consistent Standard Carb: 60 gms/meal, Cardiac: 2 gms Na, Low Chol, Low Fat diet) when medically appropriate. 3.) Consider close supervision and feeding assistance prn during meals 4.) Refer to CDE/RD for further nutrition education and weight monitoring upon discharged. 5.) Continue current plan of care.
[2018-12-03 17:00] VITALS: BP 153/76
[2018-12-03] MEDS: TAMSULOSIN HYDROCHLORIDE 0.4 MG CAP PO SCH (17:36)
--- NOTE | 2018-12-03 23:00 | NUR ---
IV d/c and reinsertion Patient experienced pain at IV site. Site was pink and puffy. IV d/c'd, cathetar fully intact, and pressure dressing applied. New IV access obtained, via clean sterile technique by inserting 22 gauge catheter at patient's right forearm after 1 attempt. IV secured properly. No trauma to site. Patient tolerated well.
[2018-12-04] MEDS: GENTAMICIN OPTH sol 0.3% 5ml EACHEYE SCH ×4 (02:00→14:00)
--- NOTE | 2018-12-04 04:42 | NUR ---
DIFFICULTY W/URINATION PATIENT ATTEMPTED TO USE URINAL ON SEVERAL OCCASIONS WITH NO SUCCESS. BLADDER SCANNED AT 573 CC. PATIENT NOT COMPLAINING OF DISCOMFORT. ATTEMPTED TO STAND PATIENT UP TO URINATE BUT PATIENT REFUSED. STATED HE WANT TO WAIT TILL LATER TO TRY AGAIN. WARM COMPRESS APPLIED TO LOWER ABDOMEN TO ATTEMPT TO STIMULATE URINATION. AWAITING WINDOW WHERE WE CAN CALL HOSPITALIST FOR AN ORDER TO EITHER STRAIGHT CATH OR INSERT AN INDWELLING CATHETER.
--- NOTE | 2018-12-04 05:15 | NUR ---
HOSPITALIST PAGED AWAITING CALL BACK.
[2018-12-04] MEDS: CLINDAMYCIN 300MG IV 50 ML IV SCH ×2 (05:41→14:00)
[2018-12-04] MEDS: SOD CHL 0.45% WITH 20MEQ KCL 1,000 ML IV SCH ×2 (05:41→12:15)
--- NOTE | 2018-12-04 05:53 | NUR ---
HOSPITALIST RETURNED CALL ORDERS TO [facility] FOR ACUTE URINARY RETENTION.
--- NOTE | 2018-12-04 06:30 | NUR ---
Pinto catheter insertion Patient assessed and determined to be in need of pinto catheter for acute urinary retention. Order obtained from hospitalistYg. Patient educated on catheter and reason for insertion. All questions answered. Pinto catheter 14 guage Puerto Rican inserted with clean sterile technique. Patient tolerated well.
[2018-12-04] MEDS: InsuLIN REG 1unit/0.01ml Soln (100units/ml) SC SCH ×2 (06:59→11:30)
[2018-12-04] MEDS: ACCU-CHEK COMFORT CURVE STRIP VI SCH ×2 (07:00→11:30)
--- NOTE | 2018-12-04 07:00 | NUR ---
Opening Shift Note Assumed care of patient, awake, alert, but oriented to self only x1. No S/S of distress/SOB or pain. IV in right forearm 22 gauge asymptomatic intact, patent and infusing 1/2 normal saline with 20 MEQ KCL at 100 mL/hour. Mariscal catheter patent and draining clear yellow urine to gravity. Bed locked and in lowest position and call light is within reach. Sitter at bedside for 24 hour care and supervision. Instructed on POC and to call for assist PRN, and patient verbalized understanding to the best of his ability. Will continue to monitor for changes Q1hr and PRN.
--- NOTE | 2018-12-04 07:14 | NUR ---
SHIFT END SITTER AT BEDSIDE. PATIENT IN NO DISTRESS. CARE ENDORSED TO DAY RN.
--- NOTE | 2018-12-04 09:30 | NUR ---
PHYSICAL THERAPY AT BEDSIDE.
[2018-12-04] MEDS: metroNIDAZOLE 500MG/100ML 100 ML IV SCH (10:00)
[2018-12-04] MEDS: LISINOPRIL 10 MG TAB PO SCH (10:00)
--- NOTE | 2018-12-04 11:30 | NUR ---
DR. HERR AT BEDSIDE. NEW ORDERS RECEIVED.
--- NOTE | 2018-12-04 11:45 | NUR ---
Discharge instructions given as ordered. All questions and concerns addressed. Patient verbalized understanding. IV removed with catheter intact, pressure dressing applied. Medication reconciliation form completed and copy given to patient. Patient is being transferred to [facility]. Patient is to follow up with accepting doctor at the receiving facility.
[2018-12-04 13:22] VITALS: BP 151/68
--- NOTE | 2018-12-04 16:25 | NUR ---
re-assessment Patient is now discharged. [facility] to transport to [facility] at 445pm. Zarina GENAO notified as well as Queta sister who verbalized understanding and agreed to discharge plan to [facility]. Addendum: 12/04/18 at 1627 by Malena CALLAHAN Amended: Links added.
--- NOTE | 2018-12-04 17:21 | NUR ---
Discharge Transfers Patient is being transferred to [facility]. Patient is to follow up with accepting doctor at the receiving facility. No distress noted at time of departure.
== END 2018-12-04 15:10 | DRG 853 ==
LOC: ER 22:39 → EDBD 22:39 → TELE 11-25 07:14 → TELE-WESTW 11-26 08:30 → WEST WING 11-28 18:15
PROVIDERS: ADMIT Nurse Practitioner Family; ATTEND Family Medicine
PROC: 0FCC8ZZ Extirpation of Matter from Ampulla of Vater, Via Natural or Artificial Opening Endoscopic (ICD-10-PCS; 2018-11-27)
PROC: 0FC98ZZ Extirpation of Matter from Common Bile Duct, Via Natural or Artificial Opening Endoscopic (ICD-10-PCS; 2018-11-27)
PROC: BF131ZZ Fluoroscopy of Gallbladder and Bile Ducts using Low Osmolar Contrast (ICD-10-PCS; 2018-11-27)
PROC: 0F798DZ Dilation of Common Bile Duct with Intraluminal Device, Via Natural or Artificial Opening Endoscopic (ICD-10-PCS; principal; 2018-11-27 16:30)
PROC: 0W993ZZ Drainage of Right Pleural Cavity, Percutaneous Approach (ICD-10-PCS; 2018-11-30)
PROC: 0FT44ZZ Resection of Gallbladder, Percutaneous Endoscopic Approach (ICD-10-PCS; 2018-12-03)
DX: A41.9 Sepsis, unspecified organism (principal); K85.90 Acute pancreatitis without necrosis or infection, unspecified; K65.1 Peritoneal abscess; J90 Pleural effusion, not elsewhere classified; E44.0 Moderate protein-calorie malnutrition; K80.66 Calculus of gallbladder and bile duct with acute and chronic cholecystitis without obstruction; K91.89 Other postprocedural complications and disorders of digestive system; H10.9 Unspecified conjunctivitis; E11.65 Type 2 diabetes mellitus with hyperglycemia; M70.21 Olecranon bursitis, right elbow; E11.21 Type 2 diabetes mellitus with diabetic nephropathy; I70.90 Unspecified atherosclerosis; E78.5 Hyperlipidemia, unspecified; I10 Essential (primary) hypertension; E87.70 Fluid overload, unspecified; F03.90 Unspecified dementia, unspecified severity, without behavioral disturbance, psychotic disturbance, mood disturbance, and anxiety; K57.50 Diverticulosis of both small and large intestine without perforation or abscess without bleeding; K66.0 Peritoneal adhesions (postprocedural) (postinfection); K82.8 Other specified diseases of gallbladder; N40.1 Benign prostatic hyperplasia with lower urinary tract symptoms; N62 Hypertrophy of breast; Y84.8 Other medical procedures as the cause of abnormal reaction of the patient, or of later complication, without mention of misadventure at the time of the procedure; E66.01 Morbid (severe) obesity due to excess calories; F10.20 Alcohol dependence, uncomplicated; Z79.84 Long term (current) use of oral hypoglycemic drugs; Z86.73 Personal history of transient ischemic attack (TIA), and cerebral infarction without residual deficits; Z68.22 Body mass index [BMI] 22.0-22.9, adult
CPT/HCPCS: 10022; 36415; 71045; 71250; 73070; 74018; 74176; 74181; 76001; 76604; 76705; 76942; 80048; 80053; 81001; 82150; 82962; 83036; 83690; 83986; 84484; 85025; 85610; 85730; 86850; 86900; 86901; 87040; 87086; 87205; 87804; 89051; 93005; 97116; 97530; A6257; G0378; J0690; J0696; J1815; J1885; J2250; J2405; J2704; J3490

== ENCOUNTER 2019-03-08 16:30 | Emergency (ER) | payer MEDICARE, MEDICAID ==
[~2019-03-08] VITALS: Ht 152.4 cm; Wt 66.2 kg
[~2019-03-08 16:30] MED LIST: AMLO10TA12 PO; DONE10TA40 PO; METF-370 PO
[2019-03-08 16:43] VITALS: BP 179/84
[2019-03-08 17:55] LABS: Basophils # (auto) 0 uL; Basophils % (auto) 0.5 % (0.0-2.0); Eosinophils # (auto) 0.1 uL; Eosinophils % (auto) 1.2 % (0.0-7.0); Hematocrit 40.6 % (41.0-53.0); Hemoglobin 13.5 g/dL (13.5-17.5); Lymphocytes % (auto) 23.4 % (10.0-50.0); Mean Corpuscular Hemoglobin 30.4 pg (28.0-32.0); Mean Corpuscular Hgb Conc. 33.1 g/dL (32.0-36.0); Mean Corpuscular Volume 91.8 fL (80.0-100.0); Monocytes # (auto) 0.8 uL; Monocytes % (auto) 8.8 % (0.0-12.0); Neutrophils # (auto) 5.6 uL; Neutrophils % (auto) 66.1 % (37.0-80.0); Nucleated Red Blood Cells % 0.1 %; Platelet Count (auto) 271 10^3/uL (140-450); Red Blood Cells 4.43 10^6/uL (4.5-5.90); Red Cell Distribution Width 14.2 % (11.8-14.3); White Blood Cell 8.5 10^3/uL (4.4-10.8)
[2019-03-08 18:11] LABS: Albumin 3.3 g/dL (3.4-5.0); Calcium 8.9 mg/dL (8.5-10.1); Potassium 4.1 mmol/L (3.5-5.1)
[2019-03-08 18:15] LABS: BUN/Creatinine Ratio 18.9; Bilirubin, Total 0.6 mg/dL (0.2-1.0); Total Protein 7.3 g/dL (6.4-8.2)
== END 2019-03-08 20:38 | disposition left against medical advice (07) ==
LOC: ER 16:30
DX: R10.9 Unspecified abdominal pain (principal); Z53.21 Procedure and treatment not carried out due to patient leaving prior to being seen by health care provider
CPT/HCPCS: 36415; 80053; 82150; 83690; 85025

== ENCOUNTER 2019-03-10 10:10 | Inpatient (IN) | payer MEDICARE, MEDICAID ==
[~2019-03-10] VITALS: Ht 165.1 cm; Wt 68.0 kg
[2019-03-10] MEDS ORDERED: SODIUM CHLORIDE 0.9% 500 ML IVB ONE (11:15)
[2019-03-10] MEDS ORDERED: MORPHINE SULFATE 4 MG/ML SYR/VIAL IV ONE (11:15)
[2019-03-10] MEDS ORDERED: ONDANSETRON HCL 4 MG/2 ML VIAL IV ONE (11:15)
[2019-03-10 11:43] LABS: Basophils # (auto) 0 uL; Basophils % (auto) 0.5 % (0.0-2.0); Eosinophils # (auto) 0.1 uL; Eosinophils % (auto) 0.8 % (0.0-7.0); Hematocrit 37.4 % (41.0-53.0); Hemoglobin 12.5 g/dL (13.5-17.5); Lymphocytes # (auto) 1.6 uL; Lymphocytes % (auto) 19.3 % (10.0-50.0); Mean Corpuscular Hemoglobin 30.4 pg (28.0-32.0); Mean Corpuscular Hgb Conc. 33.4 g/dL (32.0-36.0); Monocytes # (auto) 0.5 uL; Monocytes % (auto) 5.8 % (0.0-12.0); Neutrophils # (auto) 6.2 uL; Neutrophils % (auto) 73.6 % (37.0-80.0); Platelet Count (auto) 258 10^3/uL (140-450); Red Blood Cells 4.11 10^6/uL (4.5-5.90); Red Cell Distribution Width 13.9 % (11.8-14.3); White Blood Cell 8.5 10^3/uL (4.4-10.8)
[2019-03-10 12:04] LABS: Albumin 2.9 g/dL (3.4-5.0); Calcium 8.7 mg/dL (8.5-10.1); Magnesium 2.1 mg/dL (1.6-2.6); Potassium 4.2 mmol/L (3.5-5.1)
[2019-03-10 12:08] LABS: BUN/Creatinine Ratio 15.3; Bilirubin, Total 0.6 mg/dL (0.2-1.0); Total Protein 6.3 g/dL (6.4-8.2)
[2019-03-10 12:55] LABS: Urine Bacteria FEW /hpf (None Seen); Urine Blood Negative /uL (Negative); Urine Specific Gravity 1.014 (1.001-1.035); Urine WBC <1 /hpf (0 - 3)
[2019-03-10] MEDS ORDERED: LORazepam 2MG/ML-1ML VIAL IV ONE (14:15)
[2019-03-10] MEDS ORDERED: INSULIN LANTUS (GLARGINE) 1 /0.01ml (100units/ml) SC ONE (14:30)
[2019-03-10] MEDS ORDERED: NITROGLYCERIN 0.4 MG SL TAB SL PRN (14:30)
[2019-03-10] MEDS ORDERED: DEXTROSE (50%) 50ML SYRG IV PRN (14:30)
[2019-03-10] MEDS ORDERED: MORPHINE SULF INJ 2 MG/ML SYRINGE 1ML IV PRN (14:30)
[2019-03-10] MEDS ORDERED: ONDANSETRON HCL 4 MG/2 ML VIAL IV PRN (14:30)
[2019-03-10] MEDS: SODIUM CHLORIDE 0.9% 1,000 ML IV SCH ×2 (14:34→21:55)
[2019-03-10] MEDS: ACCU-CHEK COMFORT CURVE STRIP VI SCH ×3 (16:00→23:52)
[2019-03-10] MEDS: InsuLIN REG 1unit/0.01ml Soln (100units/ml) SC SCH ×2 (16:00→20:34)
[2019-03-10 18:01] VITALS: BP 145/62
[2019-03-10 20:00] VITALS: BP 161/74
[2019-03-10] MEDS: MORPHINE SULF INJ 2 MG/ML SYRINGE 1ML IV PRN (20:43)
[2019-03-10] MEDS: DONEPEZIL HYDROCHLORIDE 5 MG TAB PO SCH (21:53)
[2019-03-10 22:00] VITALS: BP_SYST 108; BP_SYST 161; BP_DIAS 66; BP_DIAS 74
[2019-03-10] MEDS: ALPRAZolam 0.5 MG TAB PO PRN (23:51)
[2019-03-11] MEDS: MORPHINE SULF INJ 2 MG/ML SYRINGE 1ML IV PRN ×2 (03:53→12:05)
[2019-03-11] MEDS: InsuLIN REG 1unit/0.01ml Soln (100units/ml) SC SCH ×6 (03:59→20:00)
[2019-03-11] MEDS: ACCU-CHEK COMFORT CURVE STRIP VI SCH ×6 (03:59→23:15)
[2019-03-11 05:00] VITALS: BP 168/83
[2019-03-11] MEDS: hydrALAZINE HCL 20 MG/ML VL IV PRN ×2 (06:00→17:20)
[2019-03-11 06:33] LABS: Basophils # (auto) 0 uL; Basophils % (auto) 0.4 % (0.0-2.0); Eosinophils # (auto) 0.1 uL; Eosinophils % (auto) 0.6 % (0.0-7.0); Hematocrit 37.7 % (41.0-53.0); Hemoglobin 12.8 g/dL (13.5-17.5); Lymphocytes # (auto) 1.5 uL; Lymphocytes % (auto) 14.6 % (10.0-50.0); Mean Corpuscular Hemoglobin 30.8 pg (28.0-32.0); Mean Corpuscular Hgb Conc. 33.9 g/dL (32.0-36.0); Mean Corpuscular Volume 90.7 fL (80.0-100.0); Monocytes # (auto) 0.7 uL; Monocytes % (auto) 7.1 % (0.0-12.0); Neutrophils # (auto) 7.7 uL; Neutrophils % (auto) 77.3 % (37.0-80.0); Platelet Count (auto) 249 10^3/uL (140-450); Red Blood Cells 4.15 10^6/uL (4.5-5.90); Red Cell Distribution Width 13.6 % (11.8-14.3)
[2019-03-11 06:43] LABS: Calcium 8.6 mg/dL (8.5-10.1)
[2019-03-11 06:46] LABS: BUN/Creatinine Ratio 13.6; Bilirubin, Total 1.3 mg/dL (0.2-1.0); Total Protein 6.3 g/dL (6.4-8.2)
[2019-03-11 08:00] VITALS: BP 168/83
[2019-03-11 08:59] VITALS: BP 159/83
[2019-03-11] MEDS: amLODIPine BESYLATE 5 MG TAB PO SCH (10:29)
[2019-03-11] MEDS: SODIUM CHLORIDE 0.9% 1,000 ML IV SCH ×3 (10:30→23:02)
[2019-03-11 12:35] VITALS: BP 151/74
[2019-03-11 17:00] VITALS: BP 167/86
[2019-03-11] MEDS: ALPRAZolam 0.5 MG TAB PO PRN (17:30)
[2019-03-11] MEDS: DONEPEZIL HYDROCHLORIDE 5 MG TAB PO SCH (22:00)
[2019-03-12] MEDS: InsuLIN REG 1unit/0.01ml Soln (100units/ml) SC SCH ×6 (04:00→20:00)
[2019-03-12] MEDS: ACCU-CHEK COMFORT CURVE STRIP VI SCH ×5 (04:34→20:00)
[2019-03-12 04:43] VITALS: BP 149/79
[2019-03-12] MEDS: LORazepam 2MG/ML-1ML VIAL IV PRN (05:39)
[2019-03-12] MEDS: SODIUM CHLORIDE 0.9% 1,000 ML IV SCH (06:07)
[2019-03-12 06:27] LABS: Basophils # (auto) 0 uL; Basophils % (auto) 0.3 % (0.0-2.0); Eosinophils # (auto) 0 uL; Eosinophils % (auto) 0.2 % (0.0-7.0); Hematocrit 39.8 % (41.0-53.0); Hemoglobin 13.5 g/dL (13.5-17.5); Lymphocytes # (auto) 2.2 uL; Lymphocytes % (auto) 20.6 % (10.0-50.0); Mean Corpuscular Hemoglobin 30.6 pg (28.0-32.0); Mean Corpuscular Hgb Conc. 33.8 g/dL (32.0-36.0); Mean Corpuscular Volume 90.3 fL (80.0-100.0); Monocytes % (auto) 9.8 % (0.0-12.0); Neutrophils # (auto) 7.2 uL; Neutrophils % (auto) 69.1 % (37.0-80.0); Platelet Count (auto) 234 10^3/uL (140-450); Red Blood Cells 4.41 10^6/uL (4.5-5.90); Red Cell Distribution Width 13.8 % (11.8-14.3); White Blood Cell 10.5 10^3/uL (4.4-10.8)
[2019-03-12 06:46] LABS: Albumin 2.7 g/dL (3.4-5.0); BUN/Creatinine Ratio 11.4; Calcium 8.5 mg/dL (8.5-10.1)
[2019-03-12 06:49] LABS: Total Protein 6.5 g/dL (6.4-8.2)
[2019-03-12 08:00] VITALS: BP 167/86
[2019-03-12 08:52] VITALS: BP 146/84
[2019-03-12] MEDS: amLODIPine BESYLATE 5 MG TAB PO SCH (11:08)
[2019-03-12 14:11] VITALS: BP 159/80
[2019-03-12 17:00] VITALS: BP 152/86
[2019-03-12 21:43] VITALS: BP 157/78
[2019-03-13] MEDS: DONEPEZIL HYDROCHLORIDE 5 MG TAB PO SCH ×2 (00:10→21:02)
[2019-03-13] MEDS: ACCU-CHEK COMFORT CURVE STRIP VI SCH ×6 (00:25→20:26)
[2019-03-13 04:00] VITALS: BP 187/96
[2019-03-13] MEDS: InsuLIN REG 1unit/0.01ml Soln (100units/ml) SC SCH ×6 (04:00→20:27)
[2019-03-13 05:00] VITALS: BP 168/88
[2019-03-13] MEDS: hydrALAZINE HCL 20 MG/ML VL IV PRN ×2 (05:27→14:15)
[2019-03-13] MEDS: LORazepam 2MG/ML-1ML VIAL IV PRN (05:28)
[2019-03-13 08:44] VITALS: BP 157/78
[2019-03-13] MEDS: amLODIPine BESYLATE 5 MG TAB PO SCH (10:06)
[2019-03-13] MEDS ORDERED: IOHEXOL 300 MG/ML 100ML BOTTLE IJ ONE (11:52)
[2019-03-13] MEDS ORDERED: fentaNYL CITRATE 100 MCG/2 ML VL ONE (12:36)
[2019-03-13] MEDS ORDERED: MIDAZOLAM HCL 1MG/1ML-2 ML VIAL ONE (12:38)
[2019-03-13] MEDS ORDERED: PROPOFOL 10 MG/ML 20 ML IV ONE (12:41)
[2019-03-13] MEDS ORDERED: ONDANSETRON HCL 4 MG/2 ML VIAL IV ONE (13:45)
[2019-03-13] MEDS ORDERED: ePHEDrine SULFATE 50 MG/ML AMP IV PRN (13:45)
[2019-03-13] MEDS ORDERED: hydrALAZINE HCL 20 MG/ML VL IV PRN (13:45)
[2019-03-13] MEDS ORDERED: fentaNYL CITRATE 100 MCG/2 ML VL IV ONE (14:00)
[2019-03-13 16:18] VITALS: BP 154/72
[2019-03-13 22:00] VITALS: BP 147/73
[2019-03-14] MEDS: ACETAMINOPHEN 500 MG TAB PO PRN (00:20)
[2019-03-14] MEDS: ACCU-CHEK COMFORT CURVE STRIP VI SCH ×6 (00:30→20:18)
[2019-03-14] MEDS: InsuLIN REG 1unit/0.01ml Soln (100units/ml) SC SCH ×6 (04:00→20:18)
[2019-03-14 05:00] VITALS: BP 132/63
[2019-03-14] MEDS: PIPERACILLIN-TAZOB 3.375GM 100 ML IV SCH ×3 (06:20→22:12)
[2019-03-14 09:00] VITALS: BP 146/74
[2019-03-14] MEDS: CIPROFLOXACIN 0.3%OPTH(EYE) SOL 5ML EACHEYE SCH ×4 (10:00→22:12)
[2019-03-14] MEDS: amLODIPine BESYLATE 5 MG TAB PO SCH (10:33)
[2019-03-14 13:00] VITALS: BP 141/72
[2019-03-14] MEDS: MORPHINE SULF INJ 2 MG/ML SYRINGE 1ML IV PRN (13:48)
[2019-03-14 17:00] VITALS: BP 140/71
[2019-03-14 22:00] VITALS: BP 137/70
[2019-03-14] MEDS: DONEPEZIL HYDROCHLORIDE 5 MG TAB PO SCH (22:12)
[2019-03-15] MEDS: CIPROFLOXACIN 0.3%OPTH(EYE) SOL 5ML EACHEYE SCH ×6 (02:00→20:34)
[2019-03-15] MEDS: ACCU-CHEK COMFORT CURVE STRIP VI SCH ×6 (04:00→20:23)
[2019-03-15] MEDS: InsuLIN REG 1unit/0.01ml Soln (100units/ml) SC SCH ×6 (04:00→20:23)
[2019-03-15 05:00] VITALS: BP 145/69
[2019-03-15] MEDS: PIPERACILLIN-TAZOB 3.375GM 100 ML IV SCH ×3 (06:00→20:35)
[2019-03-15 09:00] VITALS: BP 149/69
[2019-03-15] MEDS: amLODIPine BESYLATE 5 MG TAB PO SCH (09:28)
[2019-03-15 12:19] LABS: Albumin 2.6 g/dL (3.4-5.0); Calcium 8.6 mg/dL (8.5-10.1); Potassium 3.7 mmol/L (3.5-5.1)
[2019-03-15 12:21] LABS: Basophils # (auto) 0.1 uL; Basophils % (auto) 0.8 % (0.0-2.0); Eosinophils # (auto) 0.2 uL; Eosinophils % (auto) 1.5 % (0.0-7.0); Hematocrit 41.4 % (41.0-53.0); Hemoglobin 13.8 g/dL (13.5-17.5); Lymphocytes # (auto) 1.7 uL; Lymphocytes % (auto) 15.2 % (10.0-50.0); Mean Corpuscular Hemoglobin 30.9 pg (28.0-32.0); Mean Corpuscular Hgb Conc. 33.4 g/dL (32.0-36.0); Mean Corpuscular Volume 92.6 fL (80.0-100.0); Monocytes # (auto) 0.9 uL; Monocytes % (auto) 8.3 % (0.0-12.0); Neutrophils # (auto) 8.2 uL; Neutrophils % (auto) 74.2 % (37.0-80.0); Platelet Count (auto) 262 10^3/uL (140-450); Red Blood Cells 4.47 10^6/uL (4.5-5.90); Red Cell Distribution Width 13.8 % (11.8-14.3)
[2019-03-15 12:22] LABS: BUN/Creatinine Ratio 12.7; Bilirubin, Total 1.2 mg/dL (0.2-1.0); Total Protein 6.8 g/dL (6.4-8.2)
[2019-03-15 16:44] VITALS: BP 132/66
[2019-03-15] MEDS: DONEPEZIL HYDROCHLORIDE 5 MG TAB PO SCH (20:34)
[2019-03-15 22:00] VITALS: BP 131/66
[2019-03-15] MEDS: MORPHINE SULF INJ 2 MG/ML SYRINGE 1ML IV PRN (22:01)
[2019-03-16] MEDS: ACCU-CHEK COMFORT CURVE STRIP VI SCH ×6 (00:05→20:30)
[2019-03-16] MEDS: CIPROFLOXACIN 0.3%OPTH(EYE) SOL 5ML EACHEYE SCH ×6 (02:00→20:30)
[2019-03-16] MEDS: InsuLIN REG 1unit/0.01ml Soln (100units/ml) SC SCH ×6 (04:00→20:30)
[2019-03-16 05:00] VITALS: BP 147/79
[2019-03-16 05:12] LABS: Basophils # (auto) 0.1 uL; Eosinophils # (auto) 0.2 uL; Eosinophils % (auto) 1.9 % (0.0-7.0); Hematocrit 42.4 % (41.0-53.0); Hemoglobin 14.3 g/dL (13.5-17.5); Lymphocytes # (auto) 3.5 uL; Mean Corpuscular Hemoglobin 30.5 pg (28.0-32.0); Mean Corpuscular Hgb Conc. 33.8 g/dL (32.0-36.0); Mean Corpuscular Volume 90.5 fL (80.0-100.0); Monocytes # (auto) 0.8 uL; Monocytes % (auto) 6.8 % (0.0-12.0); Neutrophils # (auto) 7.7 uL; Neutrophils % (auto) 62.3 % (37.0-80.0); Nucleated Red Blood Cells % 0.1 %; Platelet Count (auto) 317 10^3/uL (140-450); Red Blood Cells 4.68 10^6/uL (4.5-5.90); Red Cell Distribution Width 13.2 % (11.8-14.3); White Blood Cell 12.4 10^3/uL (4.4-10.8)
[2019-03-16 05:22] LABS: Albumin 2.9 g/dL (3.4-5.0); Calcium 8.9 mg/dL (8.5-10.1); Potassium 3.5 mmol/L (3.5-5.1)
[2019-03-16 05:27] LABS: BUN/Creatinine Ratio 16.2; Bilirubin, Total 0.9 mg/dL (0.2-1.0); Total Protein 7.4 g/dL (6.4-8.2)
[2019-03-16] MEDS: PIPERACILLIN-TAZOB 3.375GM 100 ML IV SCH ×3 (06:39→20:52)
[2019-03-16 09:00] VITALS: BP 138/69
[2019-03-16] MEDS: amLODIPine BESYLATE 5 MG TAB PO SCH (09:22)
[2019-03-16 13:00] VITALS: BP 134/69
[2019-03-16 17:00] VITALS: BP 132/69
[2019-03-16] MEDS: DONEPEZIL HYDROCHLORIDE 5 MG TAB PO SCH (20:30)
[2019-03-16 22:00] VITALS: BP 147/60
[2019-03-17] MEDS: CIPROFLOXACIN 0.3%OPTH(EYE) SOL 5ML EACHEYE SCH ×6 (00:27→21:43)
[2019-03-17] MEDS: ACCU-CHEK COMFORT CURVE STRIP VI SCH ×7 (00:27→23:38)
[2019-03-17] MEDS: InsuLIN REG 1unit/0.01ml Soln (100units/ml) SC SCH ×7 (04:00→23:38)
[2019-03-17] MEDS: PIPERACILLIN-TAZOB 3.375GM 100 ML IV SCH ×3 (04:51→21:43)
[2019-03-17 05:00] VITALS: BP 150/74
[2019-03-17] MEDS: MORPHINE SULF INJ 2 MG/ML SYRINGE 1ML IV PRN (06:38)
[2019-03-17 07:42] LABS: Basophils # (auto) 0 uL; Basophils % (auto) 0.5 % (0.0-2.0); Eosinophils # (auto) 0.2 uL; Hematocrit 39.6 % (41.0-53.0); Hemoglobin 13.4 g/dL (13.5-17.5); Lymphocytes # (auto) 2.2 uL; Mean Corpuscular Hemoglobin 30.3 pg (28.0-32.0); Mean Corpuscular Hgb Conc. 33.7 g/dL (32.0-36.0); Mean Corpuscular Volume 89.9 fL (80.0-100.0); Monocytes # (auto) 0.7 uL; Monocytes % (auto) 6.9 % (0.0-12.0); Neutrophils # (auto) 6.9 uL; Neutrophils % (auto) 68.6 % (37.0-80.0); Platelet Count (auto) 319 10^3/uL (140-450); Red Blood Cells 4.41 10^6/uL (4.5-5.90); Red Cell Distribution Width 13.5 % (11.8-14.3); White Blood Cell 10.1 10^3/uL (4.4-10.8)
[2019-03-17 07:43] LABS: Albumin 2.6 g/dL (3.4-5.0); Calcium 8.8 mg/dL (8.5-10.1); Potassium 3.6 mmol/L (3.5-5.1)
[2019-03-17 07:46] LABS: BUN/Creatinine Ratio 18.6; Bilirubin, Total 0.7 mg/dL (0.2-1.0); Total Protein 6.6 g/dL (6.4-8.2)
[2019-03-17 08:22] VITALS: BP 125/73
[2019-03-17 08:24] VITALS: BP 146/73
[2019-03-17] MEDS: amLODIPine BESYLATE 5 MG TAB PO SCH (08:50)
[2019-03-17 12:22] VITALS: BP 126/82
[2019-03-17 16:29] VITALS: BP 136/62
[2019-03-17] MEDS ORDERED: INSULIN LANTUS (GLARGINE) 1 /0.01ml (100units/ml) SC ONE (17:00)
[2019-03-17] MEDS: ACETAMINOPHEN 500 MG TAB PO PRN (18:08)
[2019-03-17 21:32] VITALS: BP 142/68
[2019-03-17] MEDS: DONEPEZIL HYDROCHLORIDE 5 MG TAB PO SCH (21:43)
[2019-03-18] MEDS: CIPROFLOXACIN 0.3%OPTH(EYE) SOL 5ML EACHEYE SCH ×6 (01:36→21:17)
[2019-03-18] MEDS: InsuLIN REG 1unit/0.01ml Soln (100units/ml) SC SCH ×6 (03:54→23:06)
[2019-03-18] MEDS: ACCU-CHEK COMFORT CURVE STRIP VI SCH ×6 (03:55→23:06)
[2019-03-18 05:26] VITALS: BP 166/78
[2019-03-18] MEDS: PIPERACILLIN-TAZOB 3.375GM 100 ML IV SCH ×3 (05:37→21:13)
[2019-03-18] MEDS: hydrALAZINE HCL 20 MG/ML VL IV PRN (05:37)
[2019-03-18 07:02] LABS: Basophils # (auto) 0.1 uL; Basophils % (auto) 0.6 % (0.0-2.0); Eosinophils # (auto) 0.2 uL; Eosinophils % (auto) 2.3 % (0.0-7.0); Hematocrit 38.7 % (41.0-53.0); Hemoglobin 13.1 g/dL (13.5-17.5); Lymphocytes # (auto) 2.4 uL; Lymphocytes % (auto) 26.2 % (10.0-50.0); Mean Corpuscular Hemoglobin 30.7 pg (28.0-32.0); Mean Corpuscular Hgb Conc. 33.8 g/dL (32.0-36.0); Mean Corpuscular Volume 90.6 fL (80.0-100.0); Monocytes # (auto) 0.7 uL; Monocytes % (auto) 7.8 % (0.0-12.0); Neutrophils # (auto) 5.7 uL; Neutrophils % (auto) 63.1 % (37.0-80.0); Platelet Count (auto) 323 10^3/uL (140-450); Red Blood Cells 4.27 10^6/uL (4.5-5.90); Red Cell Distribution Width 13.2 % (11.8-14.3); White Blood Cell 9.1 10^3/uL (4.4-10.8)
[2019-03-18 07:22] LABS: Albumin 2.5 g/dL (3.4-5.0); Calcium 8.9 mg/dL (8.5-10.1); Potassium 3.7 mmol/L (3.5-5.1)
[2019-03-18 07:27] LABS: BUN/Creatinine Ratio 19.2; Bilirubin, Total 0.6 mg/dL (0.2-1.0); Total Protein 6.6 g/dL (6.4-8.2)
[2019-03-18 09:00] VITALS: BP 147/70
[2019-03-18] MEDS: amLODIPine BESYLATE 5 MG TAB PO SCH (10:13)
[2019-03-18 17:36] VITALS: BP 138/71
[2019-03-18] MEDS: DONEPEZIL HYDROCHLORIDE 5 MG TAB PO SCH (21:13)
[2019-03-18 21:48] VITALS: BP 134/66
[2019-03-18] MEDS ORDERED: INSULIN LANTUS (GLARGINE) 1 /0.01ml (100units/ml) SC SCH (22:00)
[2019-03-19] MEDS: LORazepam 2MG/ML-1ML VIAL IV PRN (00:23)
[2019-03-19] MEDS: ALPRAZolam 0.5 MG TAB PO PRN (01:04)
[2019-03-19] MEDS: CIPROFLOXACIN 0.3%OPTH(EYE) SOL 5ML EACHEYE SCH ×4 (01:13→14:00)
[2019-03-19] MEDS: InsuLIN REG 1unit/0.01ml Soln (100units/ml) SC SCH ×3 (03:59→11:35)
[2019-03-19] MEDS: ACCU-CHEK COMFORT CURVE STRIP VI SCH ×3 (03:59→11:34)
[2019-03-19] MEDS: PIPERACILLIN-TAZOB 3.375GM 100 ML IV SCH ×2 (05:14→14:00)
[2019-03-19] MEDS: hydrALAZINE HCL 20 MG/ML VL IV PRN (05:36)
[2019-03-19 05:37] VITALS: BP 168/84
[2019-03-19 09:00] VITALS: BP 134/67
[2019-03-19] MEDS: amLODIPine BESYLATE 5 MG TAB PO SCH (10:02)
[2019-03-19] MEDS: ACETAMINOPHEN 500 MG TAB PO PRN (11:42)
[2019-03-19 11:52] LABS: Basophils # (auto) 0.1 uL; Basophils % (auto) 0.7 % (0.0-2.0); Eosinophils # (auto) 0.1 uL; Eosinophils % (auto) 0.9 % (0.0-7.0); Hematocrit 39.8 % (41.0-53.0); Hemoglobin 13.1 g/dL (13.5-17.5); Lymphocytes # (auto) 2.2 uL; Mean Corpuscular Hemoglobin 29.8 pg (28.0-32.0); Mean Corpuscular Hgb Conc. 32.9 g/dL (32.0-36.0); Mean Corpuscular Volume 90.6 fL (80.0-100.0); Monocytes # (auto) 0.7 uL; Monocytes % (auto) 6.4 % (0.0-12.0); Neutrophils # (auto) 8.6 uL; Platelet Count (auto) 397 10^3/uL (140-450); Red Blood Cells 4.39 10^6/uL (4.5-5.90); Red Cell Distribution Width 13.7 % (11.8-14.3); White Blood Cell 11.7 10^3/uL (4.4-10.8)
[2019-03-19 13:02] LABS: Albumin 2.9 g/dL (3.4-5.0); Calcium 9.4 mg/dL (8.5-10.1)
[2019-03-19 13:06] LABS: BUN/Creatinine Ratio 19.3; Bilirubin, Total 0.4 mg/dL (0.2-1.0); Total Protein 7.1 g/dL (6.4-8.2)
[2019-03-19 14:00] VITALS: BP 141/67
== END 2019-03-19 15:48 | disposition home or self-care (01) | DRG 919 ==
LOC: ER 10:10 → WEST WING 14:30 → TELE-WESTW 15:59 → TELE-CENTR 03-12 23:49
PROVIDERS: ADMIT Internal Medicine; ATTEND Internal Medicine
PROC: 0FC98ZZ Extirpation of Matter from Common Bile Duct, Via Natural or Artificial Opening Endoscopic (ICD-10-PCS; 2019-03-13)
PROC: 0F798ZZ Dilation of Common Bile Duct, Via Natural or Artificial Opening Endoscopic (ICD-10-PCS; 2019-03-13)
PROC: BF131ZZ Fluoroscopy of Gallbladder and Bile Ducts using Low Osmolar Contrast (ICD-10-PCS; 2019-03-13)
PROC: 0FPB8DZ Removal of Intraluminal Device from Hepatobiliary Duct, Via Natural or Artificial Opening Endoscopic (ICD-10-PCS; principal; 2019-03-13 12:20)
DX: T85.520A Displacement of bile duct prosthesis, initial encounter (principal); K85.90 Acute pancreatitis without necrosis or infection, unspecified; G93.41 Metabolic encephalopathy; E44.0 Moderate protein-calorie malnutrition; K80.50 Calculus of bile duct without cholangitis or cholecystitis without obstruction; K83.8 Other specified diseases of biliary tract; I10 Essential (primary) hypertension; F03.90 Unspecified dementia, unspecified severity, without behavioral disturbance, psychotic disturbance, mood disturbance, and anxiety; E11.40 Type 2 diabetes mellitus with diabetic neuropathy, unspecified; Z90.49 Acquired absence of other specified parts of digestive tract; R94.5 Abnormal results of liver function studies; R74.0 Nonspecific elevation of levels of transaminase and lactic acid dehydrogenase [LDH]; Z86.73 Personal history of transient ischemic attack (TIA), and cerebral infarction without residual deficits; Y83.9 Surgical procedure, unspecified as the cause of abnormal reaction of the patient, or of later complication, without mention of misadventure at the time of the procedure; E78.5 Hyperlipidemia, unspecified; Z79.84 Long term (current) use of oral hypoglycemic drugs; Z68.24 Body mass index [BMI] 24.0-24.9, adult; Z98.42 Cataract extraction status, left eye; Z98.41 Cataract extraction status, right eye
CPT/HCPCS: 36415; 71045; 74018; 76001; 76705; 80053; 81001; 82150; 82962; 83690; 83735; 85025; 86850; 86900; 86901; 86920; 93005; 94761; 96361; 96372; 96374; 96375; G0378; J1815; J2250; J2405; J2543; J2704

== ENCOUNTER 2020-01-23 12:59 | Inpatient (IN) | payer MEDICARE, MEDICAID ==
[~2020-01-23] VITALS: Ht 167.6 cm; Wt 61.2 kg
[~2020-01-23 12:59] MED LIST changes: -AMLO10TA12 PO; +AMLO10TA13 PO
[2020-01-23] MEDS ORDERED: SODIUM CHLORIDE 0.9% 1,000 ML IV ONE ×2 (13:02)
[2020-01-23 13:33] LABS: Basophils # (auto) 0.1 10 ^3/uL (0-0.2); Basophils % (auto) 0.6 % (0.0-2.0); Eosinophils # (auto) 0.1 10 ^3/uL (0-0.8); Eosinophils % (auto) 0.9 % (0.0-7.0); Hematocrit 40.6 % (41.0-53.0); Hemoglobin 13.2 g/dL (13.5-17.5); Lymphocytes # (auto) 1.9 10 ^3/uL (0.4-5.4); Lymphocytes % (auto) 20.2 % (10.0-50.0); Mean Corpuscular Hemoglobin 29.1 pg (28.0-32.0); Mean Corpuscular Hgb Conc. 32.5 g/dL (32.0-36.0); Mean Corpuscular Volume 89.7 fL (80.0-100.0); Monocytes # (auto) 0.5 10 ^3/uL (0-1.3); Monocytes % (auto) 5.2 % (0.0-12.0); Neutrophils % (auto) 73.1 % (37.0-80.0); Platelet Count (auto) 340 10^3/uL (140-450); Red Blood Cells 4.53 10^6/uL (4.5-5.90); Red Cell Distribution Width 13.8 % (11.8-14.3); White Blood Cell 9.6 10^3/uL (4.4-10.8)
[2020-01-23 13:48] LABS: Albumin 2.8 g/dL (3.4-5.0); Anion Gap 5 (5-15); Blood Urea Nitrogen 35 mg/dL (7-18); Calcium 8.9 mg/dL (8.5-10.1); Carbon Dioxide 28 mmol/L (21-32); Chloride 107 mmol/L (98-107); Glucose 247 mg/dL (74-106); Potassium 4.4 mmol/L (3.5-5.1); Sodium 140 mmol/L (136-145)
[2020-01-23 13:50] LABS: Alanine Aminotransferase 33 U/L (16-61); Aspartate Aminotransferase 27 U/L (15-37); BUN/Creatinine Ratio 20.5; GFR African American 50 mL/min; GFR Non-African American 41 mL/min
[2020-01-23 13:55] LABS: Alkaline Phosphatase 152 U/L (45-117); Bilirubin, Total 0.6 mg/dL (0.2-1.0); Total Protein 7.3 g/dL (6.4-8.2)
[2020-01-23] MEDS ORDERED: ONDANSETRON HCL 4 MG/2 ML VIAL IV PRN ×2 (15:45→16:45)
[2020-01-23 15:58] LABS: Urine Bacteria NONE SEEN /hpf (None Seen); Urine Blood Negative /uL (Negative); Urine Specific Gravity 1.014 (1.001-1.035); Urine WBC <1 /hpf (0 - 3)
[2020-01-23] MEDS ORDERED: MORPHINE SULF INJ 2 MG/ML SYRINGE 1ML ONE (16:35)
[2020-01-23] MEDS ORDERED: ONDANSETRON HCL 4 MG/2 ML VIAL ONE (16:35)
[2020-01-23] MEDS: hydrALAZINE HCL 20 MG/ML VL IV PRN ×2 (16:41→23:18)
[2020-01-23] MEDS ORDERED: MORPHINE SULF INJ 2 MG/ML SYRINGE 1ML IV PRN (16:45)
[2020-01-23] MEDS: SODIUM CHLORIDE 0.9% 1,000 ML IV SCH ×2 (16:46→23:07)
[2020-01-23] MEDS ORDERED: LORazepam 2MG/ML-1ML VIAL ONE (17:13)
[2020-01-23] MEDS: LORazepam 2MG/ML-1ML VIAL IV PRN (17:22)
[2020-01-23] MEDS: metFORMIN HYDROCHLORIDE 500 MG TAB PO SCH (18:00)
[2020-01-23] MEDS: cloNIDine HCL 0.1 MG TAB PO PRN (19:45)
[2020-01-23 22:50] VITALS: BP 164/69
[2020-01-23] MEDS: DONEPEZIL HYDROCHLORIDE 5 MG TAB PO SCH (23:16)
[2020-01-24 00:01] VITALS: BP 106/68
[2020-01-24 02:09] VITALS: BP 103/48
[2020-01-24 05:00] VITALS: BP 122/56
[2020-01-24] MEDS: SODIUM CHLORIDE 0.9% 1,000 ML IV SCH ×3 (06:50→17:43)
[2020-01-24] MEDS: metFORMIN HYDROCHLORIDE 500 MG TAB PO SCH ×2 (07:00→17:43)
[2020-01-24] MEDS: amLODIPine BESYLATE 5 MG TAB PO SCH (08:40)
[2020-01-24 09:15] VITALS: BP 142/57
[2020-01-24 09:23] LABS: Basophils # (auto) 0 10 ^3/uL (0-0.2); Basophils % (auto) 0.6 % (0.0-2.0); Eosinophils # (auto) 0.1 10 ^3/uL (0-0.8); Eosinophils % (auto) 1.2 % (0.0-7.0); Hematocrit 40.3 % (41.0-53.0); Hemoglobin 12.9 g/dL (13.5-17.5); Lymphocytes # (auto) 1.5 10 ^3/uL (0.4-5.4); Lymphocytes % (auto) 18.5 % (10.0-50.0); Mean Corpuscular Hemoglobin 28.9 pg (28.0-32.0); Mean Corpuscular Volume 90.4 fL (80.0-100.0); Monocytes # (auto) 0.5 10 ^3/uL (0-1.3); Monocytes % (auto) 5.8 % (0.0-12.0); Neutrophils # (auto) 5.9 10 ^3/uL (1.6-8.6); Neutrophils % (auto) 73.9 % (37.0-80.0); Platelet Count (auto) 306 10^3/uL (140-450); Red Blood Cells 4.46 10^6/uL (4.5-5.90); Red Cell Distribution Width 13.7 % (11.8-14.3)
[2020-01-24 09:39] LABS: Albumin 2.5 g/dL (3.4-5.0); Calcium 8.3 mg/dL (8.5-10.1); Potassium 4.8 mmol/L (3.5-5.1)
[2020-01-24 09:41] LABS: BUN/Creatinine Ratio 17.6; Bilirubin, Total 0.7 mg/dL (0.2-1.0); Total Protein 6.3 g/dL (6.4-8.2)
[2020-01-24 13:00] VITALS: BP 132/56
[2020-01-24 17:00] VITALS: BP 169/75
[2020-01-24] MEDS: hydrALAZINE HCL 20 MG/ML VL IV PRN (17:21)
[2020-01-24] MEDS: DONEPEZIL HYDROCHLORIDE 5 MG TAB PO SCH (22:00)
[2020-01-24] MEDS: LORazepam 2MG/ML-1ML VIAL IV PRN (23:22)
[2020-01-25] MEDS: SODIUM CHLORIDE 0.9% 1,000 ML IV SCH ×4 (01:20→21:00)
[2020-01-25] MEDS ORDERED: HALOPERIDOL LACTATE 5 MG/ML INJ VIAL IM PRN (04:00)
[2020-01-25] MEDS: metFORMIN HYDROCHLORIDE 500 MG TAB PO SCH ×2 (06:32→17:51)
[2020-01-25 08:00] VITALS: BP 198/92
[2020-01-25] MEDS: cloNIDine HCL 0.1 MG TAB PO PRN (09:30)
[2020-01-25] MEDS: amLODIPine BESYLATE 5 MG TAB PO SCH (09:30)
[2020-01-25 13:00] VITALS: BP 127/58
[2020-01-25 17:00] VITALS: BP 157/72
[2020-01-25] MEDS: DONEPEZIL HYDROCHLORIDE 5 MG TAB PO SCH (21:00)
[2020-01-25 22:00] VITALS: BP 132/69
[2020-01-26] MEDS: SODIUM CHLORIDE 0.9% 1,000 ML IV SCH ×3 (04:00→16:25)
[2020-01-26 05:00] VITALS: BP 155/77
[2020-01-26] MEDS: metFORMIN HYDROCHLORIDE 500 MG TAB PO SCH ×2 (06:42→17:58)
[2020-01-26 09:18] VITALS: BP 159/74
[2020-01-26] MEDS: amLODIPine BESYLATE 5 MG TAB PO SCH (10:50)
[2020-01-26 13:00] VITALS: BP 146/65
[2020-01-26] MEDS: cloNIDine HCL 0.1 MG TAB PO PRN (17:59)
[2020-01-26] MEDS ORDERED: HALOPERIDOL LACTATE 5 MG/ML INJ VIAL IM PRN (21:00)
[2020-01-26] MEDS: DONEPEZIL HYDROCHLORIDE 5 MG TAB PO SCH (21:47)
[2020-01-26 22:00] VITALS: BP 144/67
[2020-01-27 05:55] VITALS: BP 149/67
[2020-01-27] MEDS: SODIUM CHLORIDE 0.9% 1,000 ML IV SCH ×3 (06:40→13:20)
[2020-01-27] MEDS: metFORMIN HYDROCHLORIDE 500 MG TAB PO SCH (06:46)
[2020-01-27 08:58] VITALS: BP 154/62
[2020-01-27] MEDS: amLODIPine BESYLATE 5 MG TAB PO SCH (10:00)
[2020-01-27 12:56] VITALS: BP 168/75
[2020-01-27 16:27] VITALS: BP 168/75
[2020-01-27 16:49] VITALS: BP 170/65
[2020-01-27] MEDS: cloNIDine HCL 0.1 MG TAB PO PRN (17:57)
== END 2020-01-27 19:02 | disposition home or self-care (01) | DRG 640 ==
LOC: ER 12:59 → TELE 13:00 → TELE-WESTW 22:50
PROVIDERS: ADMIT Internal Medicine; ATTEND Internal Medicine
DX: E86.0 Dehydration (principal); G93.41 Metabolic encephalopathy; I16.9 Hypertensive crisis, unspecified; J90 Pleural effusion, not elsewhere classified; J93.81 Chronic pneumothorax; I10 Essential (primary) hypertension; E11.40 Type 2 diabetes mellitus with diabetic neuropathy, unspecified; E87.6 Hypokalemia; Z86.73 Personal history of transient ischemic attack (TIA), and cerebral infarction without residual deficits; E78.5 Hyperlipidemia, unspecified; Z79.82 Long term (current) use of aspirin; Z79.899 Other long term (current) drug therapy; Z81.8 Family history of other mental and behavioral disorders; R00.1 Bradycardia, unspecified; Z79.84 Long term (current) use of oral hypoglycemic drugs
CPT/HCPCS: 36415; 70450; 71045; 74176; 80053; 81001; 82962; 83880; 84484; 85025; 87081; 93005; 95819; 96361; 96374; 96375; 97116; 97163; 97530; 99291; G0378; J2405